=== PATIENT | male | born 1970 | race Caucasian/White ===

== ENCOUNTER 2020-02-22 09:50 | Emergency (ER) | payer BC, OTHER ==
[2020-02-22 11:17] LABS: Absolute Lymphocytes (CBC) 1.4 K/uL (0.7-4.9); Basophils % 0.7 % (0-1.3); Hematocrit 32.7 % (39.6-49.0); Lymphocytes % 15.2 % (15.3-44.8); MPV 9.8 fL (7.6-11.3); RBC Red Blood Cell Count 3.09 M/uL (4.33-5.43)
[2020-02-22] MEDS ORDERED: ONDANSETRON 4 MG/2 ML VIAL ONE (11:21)
[2020-02-22] MEDS ORDERED: NA CHLORIDE 0.9% 1,000 ML ONE (11:21)
[2020-02-22] MEDS ORDERED: DIAZEPAM 10 MG/2 ML INJ SYRINGE ONE (11:21)
[2020-02-22] MEDS ORDERED: FAMOTIDINE 20 MG/2 ML VIAL IV ONE (11:21)
[2020-02-22 11:23] LABS: Protime INR 1.19
[2020-02-22] MEDS ORDERED: FOLIC ACID 1 MG, THIAMINE HCL 100 MG, MULTIVITAMINS INJ 10 ML in NA CHLORIDE 0.9% 1,000 ML IV ONE (11:30)
[2020-02-22 11:36] LABS: ALT/SGPT 76 U/L (12-78); AST/SGOT 140 U/L (15-37); Albumin 3.8 g/dL (3.4-5.0); Alkaline Phosphatase 115 U/L (45-117); BUN Blood Urea Nitrogen 20 mg/dL (7-18); Bicarbonate 29 mmol/L (21-32); Bilirubin Total 1.9 mg/dL (0.2-1.0); Glucose Level 141 mg/dL (74-106); Potassium 3.2 mmol/L (3.5-5.1); Protein, Total 8.2 g/dL (6.4-8.2); Sodium Level 135 mmol/L (136-145)
--- NOTE | 2020-02-22 11:46 | RAD REPORT ---
EXAM DESCRIPTION: CT - Head Brain Wo Cont - 02/22/2020 11:31 am CLINICAL HISTORY: SEIZURE Headache, drowsiness, seizure COMPARISON: HEAD BRAIN W O CONTRAST dated 11/28/2012 TECHNIQUE: All CT scans are performed using dose optimization technique as appropriate and may inclu de automated exposure control or mA/KV adjustment according to patient size. FINDINGS: No intracranial hemorrhage, hydrocephalus or extra-axial fluid collection.No areas of brai n edema or evidence of midline shift. Moderate polypoid mucosal thickening involving the right maxillary antrum. The paranasal sinuses and mastoids are otherwise clear. The calvarium is intact. IMPRESSION: No acute intracranial abnormality.
--- NOTE | 2020-02-22 12:35 | EDPHYS ---
Physician Documentation [facility] Name: Enoch Nicole Age: 49 yrs Sex: Male : 1970 Arrival Date: 02/22/2020 Time: 09:51 Bed 8 Private MD: ED Physician Tarik Santos HPI: 02/21 11:19 This 49 yrs old Male presents to ER via Ambulatory with complaints of kdr Probable Seizure, Alcohol Withdrawal. 11:19 The patient presents with a history of multiple seizures, a total of 2. Character of kdr seizure(s): Loss of consciousness: the patient experienced loss of consciousness, Motor activity: generalized, Incontinence: none, Apnea: the patient did not experience apnea, Circulation: the patient did not experience evidence of pulse disturbance. Seizure onset: last few days. Context: the seizure(s) was witnessed, by a bystander. Seizure Hx: the patient has no previous seizure history. Associated injury: The patient did not suffer any apparent associated injury, Back: Other:. The patient has not experienced similar symptoms in the past. The patient has not recently seen a physician. The patient stopped drinking a 5th of alcohol last Saturday and on Saturday, he started to vomit and shake. he has been feeling poorly since and today continues with the tremors and nausea but no vomiting since Saturday and has been able to keep fluids down.. Historical: - Allergies: 10:06 No Known Allergies; hb - Home Meds: 10:06 levothyroxine 50 mcg oral tab once daily [Active]; Wellbutrin XL 300 mg Oral Tb24 1 tab hb once daily [Active]; metformin 750 mg Oral Tb24 1 tab once daily [Active]; - PMHx: 10:06 Hyperlipidemia; Diabetes - NIDDM; hb - PSHx: 10:06 Hernia repair; hb - Immunization history:: Adult Immunizations up to date. - Social history:: Smoking status: Patient denies any tobacco usage or history of. Patient uses alcohol, on a daily basis. ROS: 11:19 Constitutional: Negative for fever, chills, and weight loss, Eyes: Negative for injury, kdr pain, redness, and discharge, Neck: Negative for injury, pain, and swelling, Cardiovascular: Negative for chest pain, palpitations, and edema, Respiratory: Negative for shortness of breath, cough, wheezing, and pleuritic chest pain, Back: Negative for injury and pain, : Negative for injury, bleeding, discharge, and swelling, MS/Extremity: Negative for injury and deformity, Skin: Negative for injury, rash, and discoloration, Psych: Negative for depression, anxiety, suicide ideation, homicidal ideation, and hallucinations, Allergy/Immunology: Negative for hives, rash, and allergies, Endocrine: Negative for neck swelling, polydipsia, polyuria, polyphagia, and marked weight changes, Hematologic/Lymphatic: Negative for swollen nodes, abnormal bleeding, and unusual bruising. 11:19 Abdomen/GI: Positive for nausea, vomiting, and diarrhea, Negative for constipation, abdominal distension, anorexia, dysphagia, hematemesis, black/tarry stool, rectal pain, rectal bleeding, bowel incontinence. Exam: 11:19 Constitutional: This is a well developed, well nourished patient who is awake, alert, kdr and in no acute distress. Head/Face: Normocephalic, atraumatic. Eyes: Pupils equal round and reactive to light, extra-ocular motions intact. Lids and lashes normal. Conjunctiva and sclera are non-icteric and not injected. Cornea within normal limits. Periorbital areas with no swelling, redness, or edema. Neck: Trachea midline, no thyromegaly or masses palpated, and no cervical lymphadenopathy. Supple, full range of motion without nuchal rigidity, or vertebral point tenderness. No Meningismus. Chest/axilla: Normal chest wall appearance and motion. Nontender with no deformity. No lesions are appreciated. Cardiovascular: Regular rate and rhythm with a normal S1 and S2. No gallops, murmurs, or rubs. Normal PMI, no JVD. No pulse deficits. Respiratory: Lungs have equal breath sounds bilaterally, clear to auscultation and percussion. No rales, rhonchi or wheezes noted. No increased work of breathing, no retractions or nasal flaring. Abdomen/GI: Soft, non-tender, with normal bowel sounds. No distension or tympany. No guarding or rebound. No evidence of tenderness throughout. Back: No spinal tenderness. No costovertebral tenderness. Full range of motion. Skin: Warm, dry with normal turgor. Normal color with no rashes, no lesions, and no evidence of cellulitis. MS/ Extremity: Pulses equal, no cyanosis. Neurovascular intact. Full, normal range of motion. Psych: Awake, alert, with orientation to person, place and time. Behavior, mood, and affect are within normal limits. 11:19 Neuro: Orientation: is normal, Mentation: is normal, Memory: is normal, appropriate for stated age, Cerebellar function: is grossly normal based on the patient's age, Motor: is normal, Sensation: is normal, seizure activity, is not displayed by the patient, Abnormal movements: resting tremor, is located in the right arm, left arm, right leg and left leg. 11:47 ECG was reviewed by the Attending Physician. kdr Vital Signs: 10:02 BP 147 / 104; Pulse 103; Resp 16; Temp 97.9; Pulse Ox 100% on R/A; Weight 74.84 kg; hb Height 5 ft. 11 in. (180.34 cm); Pain 3/10; 11:35 BP 124 / 87; Pulse 101; Resp 18; Pulse Ox 99% on R/A; ph 12:35 BP 126 / 78; Pulse 86; Resp 18; Temp 97.6; Pulse Ox 98% on R/A; ph 10:02 Body Mass Index 23.01 (74.84 kg, 180.34 cm) hb MDM: 12:34 Patient medically screened. kdr 13:11 Data reviewed: vital signs, nurses notes, lab test result(s), EKG, radiologic studies. kdr Counseling: I had a detailed discussion with the patient and/or guardian regarding: the historical points, exam findings, and any diagnostic results supporting the discharge/admit diagnosis, lab results, radiology results, the need for outpatient follow up. ED course: The patient was stable in the ED and happy with the care provided and the plan for discharge and follow-up. 02/21 10:46 Order name: Acetaminophen; Complete Time: : kdr 02/21 10:46 Order name: Basic Metabolic Panel; Complete Time: kdr 02/21 10:46 Order name: CBC with Diff kdr 02/21 10:46 Order name: ETOH Level; Complete Time: kdr 02/21 10:46 Order name: Hepatic Function; Complete Time: : kdr 02/21 10:46 Order name: PT-INR; Complete Time: kdr 02/21 10:46 Order name: Ptt, Activated; Complete Time: 11:58 kdr 02/21 10:46 Order name: Salicylate kdr 02/21 11:19 Order name: CT Head Brain wo Cont; Complete Time: 11:58 kdr 02/21 11:20 Order name: CBC Smear Scan EDMS 02/21 10:46 Order name: EKG; Complete Time: 10:47 kdr 02/21 10:46 Order name: EKG - Nurse/Tech; Complete Time: 11:04 kdr 02/21 10:46 Order name: IV Saline Lock; Complete Time: 11:08 kdr 02/21 10:46 Order name: Labs collected and sent; Complete Time: 11:08 kdr EC:47 Rate is 99 beats/min. Rhythm is regular, Normal Sinus Rhythm with No ectopy. QRS [place] kdr is Normal. AL interval is normal. QRS interval is normal. QT interval is normal. Clinical impression: Normal ECG. Administered Medications: 11:05 Drug: NS 0.9% 1000 ml Route: IV; Rate: 1 bolus; Site: right forearm; ph 12:45 Follow up: Response: No adverse reaction; IV Status: Completed infusion; IV Intake: ph 1000ml 11:06 Drug: Zofran (Ondansetron) 4 mg Route: IVP; Site: right forearm; ph 11:48 Follow up: Response: No adverse reaction ph 11:08 Drug: Pepcid 20 mg Route: IVP; Site: right forearm; ph 11:48 Follow up: Response: No adverse reaction ph 11:10 Drug: Valium 5 mg Route: IVP; Site: right forearm; ph 11:48 Follow up: Response: No adverse reaction ph 11:47 Drug: Banana Bag - (NS 0.9% 1000 ml, foLIC Acid 1 mg, Thiamine 100 mg, Multivitamin 1 ph amp) Route: IV; Rate: calculated rate; Site: right forearm; 13:27 Follow up: Response: No adverse reaction; IV Status: Completed infusion; IV Intake: ph 1000ml Disposition: 02/22/20 12:34 Discharged to Home. Impression: Alcohol abuse, Alcohol dependence with withdrawal, unspecified. - Condition is Stable. - Discharge Instructions: Chemical Dependency, Delirium Tremens, Alcohol Use Disorder, Alcohol Abuse and Nutrition, Alcohol Withdrawal, [id number]. - Prescriptions for chlordiazepoxide HCl 25 mg Oral capsule - take 4 capsule by ORAL route every 6 hours As needed up to 300 mg/day; 20 capsule. - Medication Reconciliation Form, Thank You Letter form. - Follow up: Private Physician; When: 2 - 3 days; Reason: If symptoms return, Further diagnostic work-up, Recheck today's complaints, Continuance of care, Re-evaluation by your physician. - Problem is an acute exacerbation. - Symptoms have improved. Signatures: Dispatcher [employer] EDMS Tarik Santos MD MD [facility] Berna Dee RN RN Sanjuanita Corea RN RN Corrections: (The following items were deleted from the chart) 13:28 12:34 02/22/2020 12:34 Discharged to Home. Impression: Alcohol abuse; Alcohol ph dependence with withdrawal, unspecified. Condition is Stable. Forms are Medication Reconciliation Form, Thank You Letter, Antibiotic Education, Prescription Opioid Use. Follow up: Private Physician; When: 2 - 3 days; Reason: If symptoms return, Further diagnostic work-up, Recheck today's complaints, Continuance of care, Re-evaluation by your physician. Problem is an acute exacerbation. Symptoms have improved. kdr
--- NOTE | 2020-02-22 12:35 | ER ---
Nurse's Notes [facility] Name: Enoch Nicole Age: 49 yrs Sex: Male : 1970 Arrival Date: 02/22/2020 Time: 09:51 Bed 8 Private MD: Diagnosis: Alcohol abuse;Alcohol dependence with withdrawal, unspecified Presentation: 02/21 10:02 Chief complaint: "I drink a quart of vodka per day, my last drink was last Saturday, I hb think I have had a few seizures I bit my tongue and can't quit vomiting..". Coronavirus screen: At this time, the client does not indicate any symptoms associated with coronavirus-19. Ebola Screen: No symptoms or risks identified at this time. Initial Sepsis Screen: Does the patient meet any 2 criteria? HR > 90 bpm. No. Patient's initial sepsis screen is negative. Does the patient have a suspected source of infection? No. Patient's initial sepsis screen is negative. Risk Assessment: Do you want to hurt yourself or someone else? Patient reports no desire to harm self or others. Onset of symptoms was February 22, 2020. 10:02 Method Of Arrival: Ambulatory hb 10:02 Acuity: CHETNA 2 hb Historical: - Allergies: 10:06 No Known Allergies; hb - Home Meds: 10:06 levothyroxine 50 mcg oral tab once daily [Active]; Wellbutrin XL 300 mg Oral Tb24 1 tab hb once daily [Active]; metformin 750 mg Oral Tb24 1 tab once daily [Active]; - PMHx: 10:06 Hyperlipidemia; Diabetes - NIDDM; hb - PSHx: 10:06 Hernia repair; hb - Immunization history:: Adult Immunizations up to date. - Social history:: Smoking status: Patient denies any tobacco usage or history of. Patient uses alcohol, on a daily basis. Screenin:36 Abuse screen: Denies threats or abuse. Denies injuries from another. Nutritional ph screening: No deficits noted. Tuberculosis screening: No symptoms or risk factors identified. Fall Risk No fall in past 12 months (0 pts). Secondary diagnosis (15 points) ETOH withdrawl. IV access (20 points). Ambulatory Aid- None/Bed Rest/Nurse Assist (0 pts). Gait- Normal/Bed Rest/Wheelchair (0 pts) Mental Status- Oriented to own ability (0 pts). Assessment: 11:38 General: Appears in no apparent distress. comfortable, slender, well groomed, Behavior ph is calm, cooperative, appropriate for age. Pain: Denies pain. Neuro: Level of Consciousness is awake, alert, obeys commands, Oriented to person, place, time, situation, Seizure activity reported prior to arrival. pt report seizure activity " over the weekend". Cardiovascular: Denies chest pain, nausea, shortness of breath, Capillary refill < 3 seconds in bilateral fingers Patient's skin is warm and dry. Rhythm is sinus tachycardia. Respiratory: Airway is patent Respiratory effort is even, unlabored, Respiratory pattern is regular, symmetrical. GI: Abdomen is flat, non-distended, Patient currently denies abdominal pain, diarrhea, nausea, vomiting. : No signs and/or symptoms were reported regarding the genitourinary system. Derm: Skin is intact, is healthy with good turgor, Skin is pink, warm \\T\\ dry. Musculoskeletal: Circulation, motion, and sensation intact. Range of motion: limited in all extremities. 13:16 Reassessment: Patient appears in no apparent distress at this time. Patient and/or ph family updated on plan of care and expected duration. Pain level reassessed. Patient is alert, oriented x 3, equal unlabored respirations, skin warm/dry/pink. D/C pending completion of IV fluids/banana bag. Vital Signs: 10:02 BP 147 / 104; Pulse 103; Resp 16; Temp 97.9; Pulse Ox 100% on R/A; Weight 74.84 kg; hb Height 5 ft. 11 in. (180.34 cm); Pain 3/10; 11:35 BP 124 / 87; Pulse 101; Resp 18; Pulse Ox 99% on R/A; ph 12:35 BP 126 / 78; Pulse 86; Resp 18; Temp 97.6; Pulse Ox 98% on R/A; ph 10:02 Body Mass Index 23.01 (74.84 kg, 180.34 cm) hb Vitals: 11:35 Cardiac Rhythm Assessment Sinus tach. ph ED Course: 09:51 Patient arrived in ED. ds1 09:59 Tarik Santos MD is Attending Physician. kdr 10:05 Triage completed. hb 10:06 Arm band placed on. hb 10:22 Berna Dee, RN is Primary Nurse. ph 10:55 Initial lab(s) drawn, by oh, sent to lab. Inserted saline lock: 20 gauge in right ph forearm, using aseptic technique. Blood collected. 11:00 EKG done, by ED staff, reviewed by Tarik Santos MD. dh3 11:31 CT Head Brain wo Cont In Process Unspecified. EDMS 11:40 Bed in low position. Call light in reach. Side rails up X2. Seizure precautions ph initiated. title supervisor on. Pulse ox on. NIBP on. Door closed. Noise minimized. Warm blanket given. PO fluids given. 13:17 No provider procedures requiring assistance completed. Patient did not have IV access ph during this emergency room visit. Administered Medications: 11:05 Drug: NS 0.9% 1000 ml Route: IV; Rate: 1 bolus; Site: right forearm; ph 12:45 Follow up: Response: No adverse reaction; IV Status: Completed infusion; IV Intake: ph 1000ml 11:06 Drug: Zofran (Ondansetron) 4 mg Route: IVP; Site: right forearm; ph 11:48 Follow up: Response: No adverse reaction ph 11:08 Drug: Pepcid 20 mg Route: IVP; Site: right forearm; ph 11:48 Follow up: Response: No adverse reaction ph 11:10 Drug: Valium 5 mg Route: IVP; Site: right forearm; ph 11:48 Follow up: Response: No adverse reaction ph 11:47 Drug: Banana Bag - (NS 0.9% 1000 ml, foLIC Acid 1 mg, Thiamine 100 mg, Multivitamin 1 ph amp) Route: IV; Rate: calculated rate; Site: right forearm; 13:27 Follow up: Response: No adverse reaction; IV Status: Completed infusion; IV Intake: ph 1000ml Intake: 12:45 IV: 1000ml; Total: 1000ml. ph 13:27 IV: 1000ml; Total: 2000ml. ph Outcome: 12:34 Discharge ordered by . kdr 13:28 Patient left the ED. ph 13:28 Discharged to home ambulatory. ph 13:28 Condition: improved 13:28 Discharge instructions given to patient, Instructed on discharge instructions, follow up and referral plans. medication usage, Demonstrated understanding of instructions, follow-up care, medications, Prescriptions given X 1. Signatures: Dispatcher [employer] EDIL Tarik Santos MD MD [facility] Aparna Olsen ds1 Berna Dee RN RN ph Sanjuanita Corea RN RN Brittny Suarez 3
[2020-02-22 12:58] LABS: Platelet Estimate DECR; Urine White Blood Cell Casts OK
[2020-02-22 13:01] LABS: Blood Morphology Comment NOTED (NOT SEEN); Macrocytosis 1+; Platelets, Giant FEW
--- NOTE | 2020-02-23 10:46 | EKG ---
Test Date: 2020-02-22 Test Time: 10:56:33 Electrical Engineer: LEANN MEASUREMENT RESULTS: Intervals: Rate: 99 IA: 154 QRSD: 90 QT: 374 QTc: 479 [place]: P: 61 IA: 154 QRS: 54 T: 48 INTERPRETIVE STATEMENTS: Normal sinus rhythm Normal ECG Compared to ECG 11/28/2012 12:07:38 No significant changes Electronically Signed On 02-23-20 10:43:47 CDT by Adan Bishop
== END 2020-02-22 13:28 | disposition home or self-care (01) ==
LOC: ER 09:50
DX: F10.239 Alcohol dependence with withdrawal, unspecified (principal); E11.9 Type 2 diabetes mellitus without complications; E78.5 Hyperlipidemia, unspecified
CPT/HCPCS: 93005; 85025; 80048; 36415; 80320; 80329 ×2; 85610; 80076; 85730; 70450; J3411; J3360; J7030 ×2; J2405; 96361; 96365; 96366; 96375; 99284

== ENCOUNTER 2020-07-18 09:38 | Inpatient (IN) | payer OTHER ==
[2020-07-18 10:47] LABS: Absolute Lymphocytes (CBC) 1.3 K/uL (0.7-4.9); Basophils % 0.6 % (0-1.3); Hematocrit 31.1 % (39.6-49.0); Lymphocytes % 18.9 % (15.3-44.8); MPV 8.3 fL (7.6-11.3); RBC Red Blood Cell Count 3.05 M/uL (4.33-5.43)
[2020-07-18 10:53] LABS: Protime INR 1.2
[2020-07-18] MEDS ORDERED: FAMOTIDINE 20 MG/2 ML VIAL IV ONE (10:56)
[2020-07-18] MEDS ORDERED: LORazepam 2 MG/ML VIAL ONE ×5 (10:56→22:04)
[2020-07-18] MEDS ORDERED: NA CHLORIDE 0.9% 100 ML ONE (10:56)
[2020-07-18] MEDS ORDERED: FOLIC ACID 5 MG/ML VIAL ONE (10:57)
[2020-07-18] MEDS ORDERED: THIAMINE HCL 100 MG, FOLIC ACID 1 MG, MULTIVITAMINS INJ 10 ML in NA CHLORIDE 0.9% 1,000 ML IV ONE (11:00)
--- NOTE | 2020-07-18 11:18 | EDPHYS ---
Physician Documentation [facility] Name: Enoch Nicole Age: 50 yrs Sex: Male : 1970 Arrival Date: 07/18/2020 Time: 09:41 Bed 16 Private MD: ED Physician Mike Younger HPI: 07/18 10:21 This 50 yrs old Male presents to ER via EMS with complaints of leg cramping. kathryn 10:21 Details of fall: The patient fell from an upright position, while walking. Onset: The kathryn symptoms/episode began/occurred 5 day(s) ago. Associated injuries: The patient sustained injury to the head, injury to the chest. The patient presents with confusion, decreased mental status. Onset: The symptoms/episode began/occurred 1 week(s) ago. Possible causes: alcohol, has apparently stopped drinking. The patient presents with a history of multiple seizures, a total of 6. Seizure onset: this morning. Historical: - Allergies: 09:53 No Known Allergies; ss - PMHx: 09:53 Hyperlipidemia; Diabetes - NIDDM; Hypothyroidism; Alcoholism; ss - PSHx: 09:53 Hernia repair; ss - Immunization history:: Adult Immunizations up to date. - Social history:: Smoking status: Patient reports use of chewing tobacco. Patient denies any tobacco usage or history of. - Family history:: not pertinent. ROS: 10:21 Constitutional: Negative for fever, chills, and weight loss, Eyes: Negative for injury, kathryn pain, redness, and discharge, ENT: Negative for injury, pain, and discharge, Neck: Negative for injury, pain, and swelling, Cardiovascular: Negative for chest pain, palpitations, and edema, Respiratory: Negative for shortness of breath, cough, wheezing, and pleuritic chest pain, Abdomen/GI: Negative for abdominal pain, nausea, vomiting, diarrhea, and constipation, Back: Negative for injury and pain, : Negative for injury, bleeding, discharge, and swelling, MS/Extremity: Negative for injury and deformity, Skin: Negative for injury, rash, and discoloration, Psych: Negative for depression, anxiety, suicide ideation, homicidal ideation, and hallucinations, Allergy/Immunology: Negative for hives, rash, and allergies, Endocrine: Negative for neck swelling, polydipsia, polyuria, polyphagia, and marked weight changes, Hematologic/Lymphatic: Negative for swollen nodes, abnormal bleeding, and unusual bruising. 10:21 Neuro: Positive for seizure activity, weakness. Exam: 10:21 Constitutional: This is a well developed, well nourished patient who is awake, alert, kathryn and in no acute distress. Head/Face: Normocephalic, atraumatic. Eyes: Pupils equal round and reactive to light, extra-ocular motions intact. Lids and lashes normal. Conjunctiva and sclera are non-icteric and not injected. Cornea within normal limits. Periorbital areas with no swelling, redness, or edema. ENT: Nares patent. No nasal discharge, no septal abnormalities noted. Tympanic membranes are normal and external auditory canals are clear. Oropharynx with no redness, swelling, or masses, exudates, or evidence of obstruction, uvula midline. Mucous membranes moist. Neck: Trachea midline, no thyromegaly or masses palpated, and no cervical lymphadenopathy. Supple, full range of motion without nuchal rigidity, or vertebral point tenderness. No Meningismus. Chest/axilla: Normal chest wall appearance and motion. Nontender with no deformity. No lesions are appreciated. Cardiovascular: Regular rate and rhythm with a normal S1 and S2. No gallops, murmurs, or rubs. Normal PMI, no JVD. No pulse deficits. Respiratory: Lungs have equal breath sounds bilaterally, clear to auscultation and percussion. No rales, rhonchi or wheezes noted. No increased work of breathing, no retractions or nasal flaring. Abdomen/GI: Soft, non-tender, with normal bowel sounds. No distension or tympany. No guarding or rebound. No evidence of tenderness throughout. Back: No spinal tenderness. No costovertebral tenderness. Full range of motion. Skin: Warm, dry with normal turgor. Normal color with no rashes, no lesions, and no evidence of cellulitis. MS/ Extremity: Pulses equal, no cyanosis. Neurovascular intact. Full, normal range of motion. Neuro: Awake and alert, GCS 15, oriented to person, place, time, and situation. Cranial nerves II-XII grossly intact. Motor strength 5/5 in all extremities. Sensory grossly intact. Cerebellar exam normal. Normal gait. Psych: Awake, alert, with orientation to person, place and time. Behavior, mood, and affect are within normal limits. 10:21 Chest/axilla: Inspection: normal, no acute changes, Palpation: tenderness, that is mild, of the left clavicle and anterior aspect of left upper chest. 10:21 Respiratory: the patient does not display signs of respiratory distress, Respirations: normal, Breath sounds: are clear throughout, no acute changes. 11:13 ECG was reviewed by the Attending Physician. [facility] Vital Signs: 09:43 BP 144 / 92; Pulse 100; Resp 19; Temp 98.5(O); Pulse Ox 100% on R/A; Weight 77.11 kg; ss Height 5 ft. 11 in. (180.34 cm); Pain 0/10; 11:22 BP 119 / 78; Pulse 79; Resp 17 S; Pulse Ox 99% on R/A; jd3 12:48 BP 143 / 93; Pulse 82; Resp 17 S; Pulse Ox 98% on R/A; jd3 14:19 BP 131 / 77; Pulse 87; Resp 18 S; Pulse Ox 97% on R/A; jd3 09:43 Body Mass Index 23.71 (77.11 kg, 180.34 cm) ss MDM: 09:42 Patient medically screened. kathryn 09:43 Patient medically screened. kathryn 10:24 Differential diagnosis: closed head injury, contusion, multiple trauma, sprain, strain, kathryn hypoglycemia, intracranial bleed, pneumonia. Data reviewed: vital signs, nurses notes, lab test result(s), EKG, radiologic studies, CT scan, plain films. Data interpreted: bus monitor: rate is 100 beats/min, rhythm is regular, Pulse oximetry: on room air is 100 %. Test interpretation: by ED physician or midlevel provider: ECG, plain radiologic studies. Counseling: I had a detailed discussion with the patient and/or guardian regarding: the historical points, exam findings, and any diagnostic results supporting the discharge/admit diagnosis, lab results, radiology results, the need for outpatient follow up. 07/18 10:20 Order name: Basic Metabolic Panel; Complete Time: 11:47 [facility] 07/18 10:20 Order name: CBC with Diff [facility] 07/18 10:20 Order name: LFT's; Complete Time: 11:47 [facility] 07/18 10:20 Order name: Magnesium; Complete Time: 11:47 [facility] 07/18 10:20 Order name: NT PRO-BNP; Complete Time: 11:47 [facility] 07/18 10:20 Order name: PT-INR; Complete Time: 11:06 [facility] 07/18 10:20 Order name: Troponin (emerg Dept Use Only); Complete Time: 11:47 [facility] 07/18 10:20 Order name: Lipase; Complete Time: 11:47 [facility] 07/18 10:20 Order name: Acetaminophen; Complete Time: 11:47 [facility] 07/18 10:20 Order name: ETOH Level; Complete Time: 11:47 [facility] 07/18 10:20 Order name: Ptt, Activated; Complete Time: 11:06 [facility] 07/18 10:20 Order name: Salicylate; Complete Time: 11:47 [facility] 07/18 10:20 Order name: Urine Drug Screen [facility] 07/18 11:19 Order name: COVID-19 07/18 11:20 Order name: CORONAVIRUS [facility] 07/18 11:47 Order name: Phosphorus [facility] 07/18 11:50 Order name: Blood Culture Adult (2) [facility] 07/18 11:50 Order name: Lactate [facility] 07/18 12:16 Order name: Urine Dipstick--Ancillary (enter results) 07/18 12:17 Order name: Manual Differential [facility] 07/18 13:52 Order name: SARS-COV-2 RT PCR [facility] 07/18 14:07 Order name: CREATININE WHOLE BLOOD [facility] 07/18 16:47 Order name: Glucose, Ancillary Testing [facility] 07/18 19:40 Order name: Glucose, Ancillary Testing [facility] 07/18 21:34 Order name: Basic Metabolic Panel [facility] 07/18 21:34 Order name: Magnesium [facility] 07/19 05:41 Order name: CBC with Automated Diff [facility] 07/19 05:53 Order name: Comprehensive Metabolic Panel [facility] 07/19 05:53 Order name: Magnesium [facility] 07/19 07:03 Order name: T4 Free [facility] 07/18 10:20 Order name: XRAY Chest (1 view) [facility] 07/18 10:20 Order name: EKG; Complete Time: 10:21 [facility] 07/18 10:20 Order name: Cardiac monitoring; Complete Time: 10:31 [facility] 07/18 10:20 Order name: EKG - Nurse/Tech; Complete Time: 11:20 [facility] 07/18 10:20 Order name: IV Saline Lock; Complete Time: 10:40 [facility] 07/18 10:20 Order name: Labs collected and sent; Complete Time: 10:40 [facility] 07/18 10:20 Order name: O2 Per Protocol; Complete Time: 10: [facility] 07/18 10:20 Order name: O2 Sat Monitoring; Complete Time: 10: [facility] 07/18 10:20 Order name: Urine Dipstick-Ancillary (obtain specimen); Complete Time: 12:15 [facility] 07/18 10:20 Order name: CT Traumagram (Head C Spine CAP W Con); Complete Time: 11:47 [facility] 07/18 10:20 Order name: Seizure Precautions; Complete Time: 10:31 [facility] 07/19 07:03 Order name: Thyroid Stimulating Hormone [facility] 07/19 07:48 Order name: Glucose, Ancillary Testing [facility] 07/19 08:05 Order name: CBC Smear Scan [facility] 07/19 08:10 Order name: RAD [facility] 07/19 11:53 Order name: Glucose, Ancillary Testing [facility] 07/19 13:28 Order name: MRI [facility] 07/19 15:42 Order name: Potassium [facility] 07/19 16:30 Order name: Glucose, Ancillary Testing [facility] 07/19 19:54 Order name: Glucose, Ancillary Testing [facility] EC:13 Rate is 77 beats/min. Rhythm is regular. QRS [place] is Normal. MI interval is normal. QRS kathryn interval is normal. QT interval is prolonged at 448 msec. No Q waves. T waves are Normal. No ST changes noted. Clinical impression: NSR w/ Non-specific ST/T Changes and No evidence of ischemia. Interpreted by me. Reviewed by me. Administered Medications: 10:48 Not Given (med on back order per pharmacy): Thiamine 100 mg IV at bolus once jd3 11:18 Drug: Pepcid 20 mg Route: IVP; Site: left forearm; jd3 12:15 Follow up: Response: No adverse reaction jd3 11:19 Drug: foLIC Acid 1 mg Route: IVPB; Site: left forearm; jd3 12:15 Follow up: Response: No adverse reaction; IV Status: Completed infusion jd3 11:19 Drug: Banana Bag - (NS 0.9% 1000 ml, foLIC Acid 1 mg, Thiamine 100 mg, Multivitamin 1 jd3 amp) Route: IV; Rate: 125 ml/hr; Site: left forearm; 14:22 Follow up: Response: No adverse reaction; IV Status: Infusion continued upon admission jd3 11:19 Drug: Ativan 2 mg Route: IVP; Site: left forearm; jd3 12:15 Follow up: Response: No adverse reaction jd3 12:45 Drug: Magnesium Sulfate 2 grams Route: IVPB; Infused Over: 2 hrs; Site: left forearm; jd3 14:20 Follow up: Response: No adverse reaction; IV Status: Completed infusion jd3 12:45 Drug: Potassium Effervescent Tablet 50 mEq Route: PO; jd3 13:45 Follow up: Response: No adverse reaction jd3 13:40 Drug: Potassium Chloride 20 mEq Route: IV; Rate: per protocol; Site: left forearm; jd3 14:20 Follow up: Response: No adverse reaction; IV Status: Infusion continued upon admission jd3 15:45 Drug: Cefepime 2 grams Route: IVPB; Rate: 200 ml/hr; Infused Over: 30 mins; Site: left jd3 forearm; 15:45 Follow up: Response: No adverse reaction; IV Status: Infusion continued upon admission jd3 Disposition: 07/18/20 11:17 Hospitalization ordered by Jimi Hardy for Inpatient Admission. Preliminary diagnosis are Alcohol abuse, Alcohol dependence with withdrawal, Repeated falls, Epileptic seizures related to external causes, Type 2 diabetes mellitus, Hypokalemia, Hypomagnesemia. - Bed requested for Intensive Care Unit. - Status is Inpatient Admission. sg - Condition is Fair. - Problem is new. - Symptoms have improved. Signatures: Dispatcher [employer] Sara Magallanes RN RN Enoch Sadnoval RN RN sg Anderson, Corey, MD MD cha Williams, Irene, RN RN Lenora Stratton RN RN Ernesto Jones RN RN jd3 Corrections: (The following items were deleted from the chart) 11:50 11:17 Hospitalization Ordered by Jimi Hardy DO for Inpatient Admission. Preliminary kathryn diagnosis is Alcohol abuse; Alcohol dependence with withdrawal; Repeated falls; Epileptic seizures related to external causes; Type 2 diabetes mellitus. Bed requested for Intensive Care Unit. Status is Inpatient Admission. Condition is Fair. Problem is new. Symptoms have improved. kathryn 14:17 11:50 07/18/2020 11:17 Hospitalization Ordered by Jimi Hardy DO for Inpatient Admission. Preliminary diagnosis is Alcohol abuse; Alcohol dependence with withdrawal; Repeated falls; Epileptic seizures related to external causes; Type 2 diabetes mellitus; Hypokalemia; Hypomagnesemia. Bed requested for Intensive Care Unit. Status is Inpatient Admission. Condition is Fair. Problem is new. Symptoms have improved. kathryn 07/19 19:06 07/18 14:17 07/18/2020 11:17 Hospitalization Ordered by Jimi Hardy DO for Inpatient dw Admission. Preliminary diagnosis is Alcohol abuse; Alcohol dependence with withdrawal; Repeated falls; Epileptic seizures related to external causes; Type 2 diabetes mellitus; Hypokalemia; Hypomagnesemia. Bed requested for [facility] ER HOLD. Status is Inpatient Admission. Condition is Fair. Problem is new. Symptoms have improved. 07/19 20:09 19:06 07/18/2020 11:17 Hospitalization Ordered by Jimi Hardy DO for Inpatient sg Admission. Preliminary diagnosis is Alcohol abuse; Alcohol dependence with withdrawal; Repeated falls; Epileptic seizures related to external causes; Type 2 diabetes mellitus; Hypokalemia; Hypomagnesemia. Bed requested for Intensive Care Unit. Status is Inpatient Admission. Condition is Fair. Problem is new. Symptoms have improved. dw
--- NOTE | 2020-07-18 11:18 | ER ---
Nurse's Notes [facility] Name: Enoch Nicole Age: 50 yrs Sex: Male : 1970 Arrival Date: 07/18/2020 Time: 09:41 Bed 16 Private MD: Diagnosis: Alcohol abuse;Alcohol dependence with withdrawal;Repeated falls;Epileptic seizures related to external causes;Type 2 diabetes mellitus;Hypokalemia;Hypomagnesemia Presentation: 07/18 09:43 Chief complaint: Patient states: Quit drinking alcohol 8 days ago. Pt reports that he ss usually deals with his withdrawals at home fairly well at home, but states since the first day he quit, when he stands up his legs cramp up, but when he lays down his legs are fine. Coronavirus screen: Client denies travel out of the [place] in the last 14 days. Ebola Screen: Patient denies exposure to infectious person. Patient denies travel to an Ebola-affected area in the 21 days before illness onset. Initial Sepsis Screen: Does the patient meet any 2 criteria? No. Patient's initial sepsis screen is negative. Does the patient have a suspected source of infection? No. Patient's initial sepsis screen is negative. Risk Assessment: Do you want to hurt yourself or someone else? Patient reports no desire to harm self or others. Onset of symptoms was July 10, 2019. 09:43 Method Of Arrival: EMS: [facility] 09:43 Acuity: CHETNA 3 ss Historical: - Allergies: 09:53 No Known Allergies; ss - PMHx: 09:53 Hyperlipidemia; Diabetes - NIDDM; Hypothyroidism; Alcoholism; ss - PSHx: 09:53 Hernia repair; ss - Immunization history:: Adult Immunizations up to date. - Social history:: Smoking status: Patient reports use of chewing tobacco. Patient denies any tobacco usage or history of. - Family history:: not pertinent. Screenin:21 Abuse screen: Denies threats or abuse. Nutritional screening: No deficits noted. jd3 Tuberculosis screening: No symptoms or risk factors identified. Fall Risk Ambulatory Aid- None/Bed Rest/Nurse Assist (0 pts). Gait- Normal/Bed Rest/Wheelchair (0 pts) Mental Status- Oriented to own ability (0 pts). Total Vizcaino Fall Scale indicates No Risk (0-24 pts). Assessment: 11:20 General: Appears in no apparent distress. uncomfortable, Behavior is calm, cooperative, jd3 appropriate for age, anxious, restless. Pain: Complains of pain in right arm, left arm, right leg and left leg Quality of pain is described as crampy. Neuro: Level of Consciousness is awake, alert, obeys commands, confused, Oriented to person. Cardiovascular: Capillary refill < 3 seconds Patient's skin is warm and dry. Rhythm is regular. Respiratory: Airway is patent Respiratory effort is even, unlabored, Respiratory pattern is regular. GI: No signs and/or symptoms were reported involving the gastrointestinal system. : No signs and/or symptoms were reported regarding the genitourinary system. EENT: No signs and/or symptoms were reported regarding the EENT system. Derm: Skin is intact, Skin is dry, Skin is normal, Skin temperature is warm. Musculoskeletal: Circulation, motion, and sensation intact. Range of motion: intact in all extremities, pt with trimmers. 12:47 Reassessment: Patient appears in no apparent distress at this time. No changes from jd3 previously documented assessment. Patient and/or family updated on plan of care and expected duration. Pain level reassessed. 13:30 Reassessment: Patient appears in no apparent distress at this time. Patient and/or [facility] family updated on plan of care and expected duration. Pain level reassessed. pt still confused, A\T\O X 1. even and unlabored respirations. pt attempting to get out of bed, pt encouraged back into bed. denies pain at this time. 14:19 Reassessment: Patient appears in no apparent distress at this time. No changes from jd3 previously documented assessment. Patient and/or family updated on plan of care and expected duration. Pain level reassessed. tech at bedside encouraging pt to stay in bed. 14:23 Reassessment: charting continued in [facility]. [facility] Vital Signs: 09:43 BP 144 / 92; Pulse 100; Resp 19; Temp 98.5(O); Pulse Ox 100% on R/A; Weight 77.11 kg; ss Height 5 ft. 11 in. (180.34 cm); Pain 0/10; 11:22 BP 119 / 78; Pulse 79; Resp 17 S; Pulse Ox 99% on R/A; jd3 12:48 BP 143 / 93; Pulse 82; Resp 17 S; Pulse Ox 98% on R/A; jd3 14:19 BP 131 / 77; Pulse 87; Resp 18 S; Pulse Ox 97% on R/A; jd3 09:43 Body Mass Index 23.71 (77.11 kg, 180.34 cm) ED Course: 09:41 Patient arrived in ED. ss 09:42 Mike Younger MD is Attending Physician. kathryn 09:43 Ernesto Jones RN is Primary Nurse. jd3 09:52 Triage completed. ss 09:53 Arm band placed on right wrist. ss 10:40 Initial lab(s) drawn, by me, sent to lab. Inserted saline lock: 20 gauge in left em1 forearm, using aseptic technique. Blood collected. 10:54 CT Traumagram (Head C Spine CAP W Con) In Process Unspecified. EDMS 11:04 XRAY Chest (1 view) In Process Unspecified. EDMS 11:16 Jimi Hardy DO is Hospitalizing Provider. kathryn 11:22 Patient has correct armband on for positive identification. Bed in low position. Call jd3 light in reach. Side rails up X 1. pvc monitor on. Pulse ox on. NIBP on. 14:22 No provider procedures requiring assistance completed. Patient admitted, IV remains in jd3 place. Administered Medications: 10:48 Not Given (med on back order per pharmacy): Thiamine 100 mg IV at bolus once jd3 11:18 Drug: Pepcid 20 mg Route: IVP; Site: left forearm; jd3 12:15 Follow up: Response: No adverse reaction jd3 11:19 Drug: foLIC Acid 1 mg Route: IVPB; Site: left forearm; jd3 12:15 Follow up: Response: No adverse reaction; IV Status: Completed infusion jd3 11:19 Drug: Banana Bag - (NS 0.9% 1000 ml, foLIC Acid 1 mg, Thiamine 100 mg, Multivitamin 1 jd3 amp) Route: IV; Rate: 125 ml/hr; Site: left forearm; 14:22 Follow up: Response: No adverse reaction; IV Status: Infusion continued upon admission jd3 11:19 Drug: Ativan 2 mg Route: IVP; Site: left forearm; jd3 12:15 Follow up: Response: No adverse reaction jd3 12:45 Drug: Magnesium Sulfate 2 grams Route: IVPB; Infused Over: 2 hrs; Site: left forearm; jd3 14:20 Follow up: Response: No adverse reaction; IV Status: Completed infusion jd3 12:45 Drug: Potassium Effervescent Tablet 50 mEq Route: PO; jd3 13:45 Follow up: Response: No adverse reaction jd3 13:40 Drug: Potassium Chloride 20 mEq Route: IV; Rate: per protocol; Site: left forearm; jd3 14:20 Follow up: Response: No adverse reaction; IV Status: Infusion continued upon admission jd3 15:45 Drug: Cefepime 2 grams Route: IVPB; Rate: 200 ml/hr; Infused Over: 30 mins; Site: left jd3 forearm; 15:45 Follow up: Response: No adverse reaction; IV Status: Infusion continued upon admission jd3 Outcome: 11:17 Decision to Hospitalize by Provider. kathryn 14:22 Admitted to ER Hold. Please see [facility] for further documentation. jd3 14:22 Condition: stable 14:22 Instructed on the need for admit. 07/19 20:09 Patient left the ED. sg Signatures: Dispatcher [employer] EDEnoch De La Cruz RN RN Mike Hendrix MD MD cha Martinez, Hans em1 Lenora Stratton RN RN ss Davies, Jonathon, RN RN jd3 Corrections: (The following items were deleted from the chart) 07/18 12:48 11:20 Neuro: Level of Consciousness is awake, alert, obeys commands, Oriented to jd3 person, place, time, situation, jd3
--- NOTE | 2020-07-18 11:19 | RAD REPORT ---
EXAM DESCRIPTION: CT - Head C Spine Cap W Renny - 07/18/2020 10:53 am CLINICAL HISTORY: PAINfall, left-sided head, neck, chest and abdomen pain COMPARISON: No comparisons TECHNIQUE: Axial [address] head images were obtained. Axial [address] cervical spine images were obtaine d with sagittal and coronal reconstruction images reviewed. During dynamic enhancement of 100mL non-i onic contrast, axial 5 mm images of the chest, abdomen and pelvis were obtained. Biphasic technique p erformed of the abdomen and pelvis. All CT scans are performed using dose optimization technique as appropriate and may include automated exposure control or mA/KV adjustment according to patient size. FINDINGS: No intracranial hemorrhage, mass or edema. No midline shift or abnormal fluid collection. Volume loss changes are present greater than typically seen. Ventricles are in proportion to the volu me loss. Mastoid air cells are clear. Near complete opacification of a partially imaged right maxilla ry sinus noted. No skull fracture. CT cervical spine imaging shows normal height. Facet joint degenerative changes are present. Normal a lignment of the vertebrae. No disc space narrowing. No paraspinal mass or hematoma seen. Central bebeto l detail is inherently limited. Concerns for traumatic disc herniation or traumatic cord injury can b e further addressed with MR imaging. In the posterior right upper lobe there is a 2.5 centimeter area of ill-defined airspace opacificatio n. In the trauma setting this is most likely pulmonary contusion. Infiltrate is a lesser consideratio n. This does not have a suspicious malignant mass density. Minimal less than 5 millimeter reticulonod ular opacities are present in the midportion of the left lower lobe. This could be minimal infiltrate . Traumatic etiology is not suspected. No pneumothorax or pleural effusion. No mediastinal hematoma a nd the aorta and pulmonary arteries are unremarkable. No chest will mass or abnormal axillary finding . Nondisplaced lateral ninth left rib fracture is present. CT abdomen and pelvis show no injury to solid abdominal viscera. Diffuse fatty infiltration of the li sean is present. No gallbladder or biliary tree abnormality. No bowel injury or significant finding. N o free air, free fluid or abnormal stranding. No urinary bladder abnormality. No lumbar or pelvic acute finding. No significant vascular finding. IMPRESSION: No acute CT Head finding. Volume loss changes are present greater than typically seen fo r age. No significant CT Cervical Spine finding. Nondisplaced lateral left ninth rib fracture without pneumothorax or pleural fluid. There is a 2.5 ce ntimeter area in the right upper lobe suspected to be pulmonary contusion. Small reticulonodular opacities in the left lower lobe are nonspecific but could be minimal infiltrat e. No acute traumatic injury to the abdomen or pelvis.
[2020-07-18 11:35] LABS: ALT/SGPT 32 U/L (12-78); AST/SGOT 83 U/L (15-37); BUN Blood Urea Nitrogen 9 mg/dL (7-18); Bicarbonate 26 mmol/L (21-32); Bilirubin Total 1.2 mg/dL (0.2-1.0); Lipase 364 U/L (73-393); Protein, Total 7.7 g/dL (6.4-8.2); Sodium Level 135 mmol/L (136-145)
[2020-07-18 11:36] LABS: Albumin 3.2 g/dL (3.4-5.0); Alkaline Phosphatase 81 U/L (45-117); Bilirubin Direct 0.5 mg/dL (0-0.2); Glucose Level 208 mg/dL (74-106); Magnesium 1.2 mg/dL (1.8-2.4); NT PRO-BNP 793 pg/mL (<125); Troponin (Emerg Dept Use Only) < 0.02 ng/mL (0.0-0.045)
[2020-07-18 11:39] LABS: Potassium 2.6 mmol/L (3.5-5.1)
--- NOTE | 2020-07-18 11:59 | RAD REPORT ---
EXAM DESCRIPTION: RAD - Chest Single View - 07/18/2020 11:03 am CLINICAL HISTORY: COUGH COMPARISON: Portable October 2012 TECHNIQUE: AP portable chest image was obtained 07/18/2020 11:03 am . FINDINGS: Lungs are clear. Heart and vasculature are normal. No measurable pleural effusion and no p neumothorax. No acute bony abnormality seen. No acute aortic findings suspected. IMPRESSION: No acute cardiopulmonary process. No suspicious change from comparison.
[2020-07-18 12:12] LABS: Barbiturates NEGATIVE (NEGATIVE); Benzodiazepines NEGATIVE (NEGATIVE); Cocaine NEGATIVE (NEGATIVE); METHAMPHETAM NEGATIVE (NEGATIVE); Methadone NEGATIVE (NEGATIVE); Opiates NEGATIVE (NEGATIVE); Phencyclidine NEGATIVE (NEGATIVE); THC Cannibis NEGATIVE (NEGATIVE)
[2020-07-18 12:17] LABS: Blood Morphology Comment NOT SEEN (NOT SEEN); Platelet Estimate ADEQ
[2020-07-18] MEDS ORDERED: Magnesium Sulfate 2gm IVPB 2 G/50 ML BAG IV ONE (12:31)
[2020-07-18] MEDS ORDERED: KCL 20 MEQ/100 mL IVPB 20 MEQ/100 ML BAG IV ONE (12:31)
[2020-07-18] MEDS ORDERED: POTASSIUM 25 MEQ EFFERV TAB ONE (12:31)
[2020-07-18] MEDS ORDERED: CEFEPIME/SWI 2gm 2 GM/20 ML SYR IV ONE (13:00)
[2020-07-18 13:18] LABS: Urine Blood NEGATIVE (NEG); Urine Glucose TRACE (NEG); Urine Protein TRACE (NEG); Urine Specific Gravity 1.015 (1.005-1.030)
[2020-07-18] MEDS ORDERED: ONDANSETRON 4 MG/2 ML VIAL IV PRN (14:05)
[2020-07-18] MEDS: NA CHLORIDE 0.9% 1,000 ML IV SCH ×2 (14:05→22:05)
[2020-07-18] MEDS ORDERED: LORazepam 2 MG/ML VIAL IV PRN ×2 (14:05)
[2020-07-18] MEDS ORDERED: FLUMAZENIL 0.1 MG/ML (5 mL VIAL) IV PRN (14:05)
--- NOTE | 2020-07-18 14:09 | P.HP ---
Certification for Inpatient Patient admitted to: Observation With expected LOS: <2 Midnights Patient will require the following post-hospital care: None Practitioner: I am a practitioner with admitting privileges, knowledge of patient current condition, hospital course, and medical plan of care. Services: Services provided to patient in accordance with Admission requirements found in Title 42 Section 412.3 of the Code of Federal Regulations Patient History Date of Service: 07/18/20 Primary Care Provider: Dr. Real Reason for admission: Alcohol withdrawal symptoms History of Present Illness: 50-year-old male with history of diabetes, hypothyroidism. Patient presented to the emergency room with alcohol withdrawal symptoms. Patient reported stopping alcohol about 8 days ago. Patient reports prior to this time he was drinking heavily probably about 1/5 of vodka per day. This may be more. He reports no use of beer. Patient reports a history of alcohol abuse. He has had alcohol withdrawal symptoms in the past. He denies any fever, chills. Patient apparently going through a rough patch in his life. He is currently has 2 children.He came to the ER for further evaluation. In the ER patient was evaluated. Vital signs stable. Blood pressure is slightly elevated at 140 4/92. Heart rate 100. White count 7.1, hemoglobin 11. Platelet count 147. Slight elevation in liver function test. Sodium 135, potassium 2.6. Blood sugar 208. Magnesium level 1.2. Patient was given IV fluids in the emergency room. Thiamine was ordered. Patient admitted for further evaluation and treatment. The patient did report some falls at home. Upon further evaluation chest x-ray revealed left 9th rib fracture without pneumothorax. 2.5 cm area of right upper lobe suspected to be pulmonary contusion noted. No other acute trauma noted. Allergies No Known Allergies Allergy (Unverified 11/28/12 08:55) Home medications list reviewed: Yes - Past Medical/Surgical History Diabetic: Yes -: Diabetes mellitus type 2 [id number] -: Hypothyroidism -: Alcohol abuse -: History of alcohol withdrawal -: Increased social stress- -: Hernia repair Psychosocial/ Personal History: Patient currently . He has 2 children. He is trying to reconcile his divorce at this time. - Family History Family History: Reviewed- Non-Contributory - Social History Smoking Status: Light Tobacco smoker (1-9 cigarettes/day) Counseled patient to stop smoking for: less than 10 minutes Smoking therapy provided: Yes Patient receptive to therapy: Yes Alcohol use: Yes CD- Drugs: No Caffeine use: Yes Place of Residence: Home Review of Systems General: As per HPI Eyes: Unremarkable ENT: Unremarkable Respiratory: Unremarkable Cardiovascular: Unremarkable Gastrointestinal: Unremarkable Genitourinary: Unremarkable Musculoskeletal: As per HPI Integumentary: Unremarkable Neurological: As per HPI Lymphatics: Unremarkable Physical Examination - Physical Exam General: Alert, In no apparent distress, Oriented x3, Cooperative, Other (Patient with tremors.) HEENT: Atraumatic, Normocephalic Neck: Supple Respiratory: Clear to auscultation bilaterally, Normal air movement, Other (Pain to the left lateral region of the ribcage. Primarily to the 9th rib) Cardiovascular: Normal pulses, Regular rate/rhythm Gastrointestinal: Normal bowel sounds, Soft and benign, Non-distended, No tenderness, No masses, No rebound, No guarding Musculoskeletal: No tenderness, No warmth Integumentary: Other (Tremor noted to the lower extremity and upper extremity especially with extension.) Neurological: Normal speech, Normal strength at 5/5 x4 extr, Normal tone, Normal affect - Studies Laboratory Data (last 24 hrs) 07/18/20 10:35: PT 14.1 H, INR 1.20, APTT 26.6 07/18/20 10:35: WBC 7.1, Hgb 11.0 L, Hct 31.1 L, Plt Count 147 L 07/18/20 10:35: Sodium 135 L, Potassium 2.6 L*, BUN 9, Creatinine 0.85, Glucose 208 H, Magnesium 1.2 L*, Total Bilirubin 1.2 H, AST 83 H, ALT 32, Alkaline Phosphatase 81, Lipase 364 Assessment and Plan - Plan Impression: Tremors, lower extremity cramping secondary to alcohol withdrawal with alcohol abuse Hypokalemia, hypomagnesia secondary to above Left ribcage pain secondary to left 9th rib non displaced fracture without pneumothorax Possible pulmonary contusion to the right upper lobe Diabetes mellitus type 2 [id number] Hypothyroidism Plan: Tremors, lower extremity cramping secondary to alcohol withdrawal with alcohol abuse: Hypokalemia, hypomagnesia secondary to above: Patient will be admitted to ICU due to his alcohol withdrawal. Patient will be monitored closely. Will monitor for severe agitation and DTs. Will start Librium 25 mg 4 times a day. Will provide Ativan IV for agitation. Patient may require additional Ativan if with severe agitation. Continue IV fluid hydration. Continue with potassium and magnesium supplementation. Will provide DVT prophylaxis-Lovenox. Recheck chest x-ray tomorrow. No need for pulmonology evaluation at this time. We will have physical therapy assess ambulation tomorrow. Continue monitor electrolytes. Education on alcohol cessation addressed in detail. Patient plans to quit. Patient has been to AA in the past and remains committed. Anticipate improvement over the next 24-48 hr with possible discharge. pre will need to monitor him closely. Left ribcage pain secondary to left 9th rib non displaced fracture without pneumothorax: Continue monitor closely. May need to provide medication for pain. Recheck chest x-ray tomorrow. Will provide incentive spirometer. Possible pulmonary contusion to the right upper lobe: Recheck chest x-ray tomorrow. Will monitor this closely. Diabetes mellitus type 2 [id number]: Continue ADA diet. Will provide insulin sliding scale with Accu-Cheks. Hypothyroidism: Obtain and restart home medication. Discharge Plan: Home Plan to discharge in: 48 Hours - Advance Directives Does patient have a Living Will: No Does patient have a Durable POA for Healthcare: No - Code Status/Comfort Care Code Status Assessed: Yes (full code) Time Spent Managing Pts Care (In Minutes): 55
[2020-07-18] MEDS ORDERED: HYDROCODONE/APAP 7.5/325 MG TAB PO PRN (14:13)
[2020-07-18] MEDS ORDERED: TRAMADOL HCL 50 MG TAB PO PRN (14:13)
[2020-07-18] MEDS: ENOXAPARIN 40 MG/0.4 ML SQ SCH (16:00)
[2020-07-18] MEDS: INSULIN -REGULAR HUMAN 50 UNIT/0.5 ML ML SQ SCH ×2 (16:30→19:30)
[2020-07-18] MEDS ORDERED: NA CHLORIDE 0.9% 1,000 ML ONE (16:44)
[2020-07-18] MEDS ORDERED: ENOXAPARIN 40 MG/0.4 ML SQ ONE (16:44)
[2020-07-18] MEDS: chlordiazePOXIDE HCl 25 MG CAP PO SCH ×2 (18:00→23:21)
[2020-07-18] MEDS ORDERED: chlordiazePOXIDE HCl 25 MG CAP ONE (18:36)
[2020-07-18 19:26] VITALS: BMI 23.7
[2020-07-18] MEDS ORDERED: LORazepam 2 MG/ML VIAL IV ONE (20:24)
[2020-07-18] MEDS: LORazepam 2 MG/ML VIAL IV PRN ×3 (20:50→22:38)
[2020-07-18] MEDS: LORazepam 2 MG/ML VIAL IV SCH (21:00)
[2020-07-18 21:08] LABS: BUN Blood Urea Nitrogen 7 mg/dL (7-18); Bicarbonate 27 mmol/L (21-32); Glucose Level 144 mg/dL (74-106); Magnesium 1.7 mg/dL (1.8-2.4); Potassium 3.5 mmol/L (3.5-5.1); Sodium Level 142 mmol/L (136-145)
[2020-07-18] MEDS ORDERED: POTASSIUM CL SA 10 MEQ TAB PO ONE (22:37)
[2020-07-18] MEDS ORDERED: MAGNESIUM SULFATE 1 gm IVPB 1 GM/100 ML BAG IV ONE (22:38)
[2020-07-19] MEDS ORDERED: MAGNESIUM SULFATE 1 gm IVPB 1 GM/100 ML BAG IV ONE
[2020-07-19] MEDS: LORazepam 2 MG/ML VIAL IV SCH ×6 (00:11→21:21)
[2020-07-19] MEDS ORDERED: LORazepam 2 MG/ML VIAL ONE ×13 (00:20→21:35)
[2020-07-19] MEDS: LORazepam 2 MG/ML VIAL IV PRN ×10 (01:48→23:44)
[2020-07-19] MEDS: chlordiazePOXIDE HCl 25 MG CAP PO SCH ×4 (05:02→23:44)
[2020-07-19] MEDS: NA CHLORIDE 0.9% 1,000 ML IV SCH ×2 (05:03→18:38)
[2020-07-19 05:38] LABS: Absolute Lymphocytes (CBC) 2.4 K/uL (0.7-4.9); Basophils % 0.6 % (0-1.3); Hematocrit 34.1 % (39.6-49.0); Lymphocytes % 27.8 % (15.3-44.8); RBC Red Blood Cell Count 3.31 M/uL (4.33-5.43)
[2020-07-19 05:53] LABS: ALT/SGPT 37 U/L (12-78); AST/SGOT 72 U/L (15-37); Albumin 3.5 g/dL (3.4-5.0); Alkaline Phosphatase 83 U/L (45-117); BUN Blood Urea Nitrogen 4 mg/dL (7-18); Bicarbonate 31 mmol/L (21-32); Glucose Level 132 mg/dL (74-106); Magnesium 1.9 mg/dL (1.8-2.4); Potassium 3.1 mmol/L (3.5-5.1); Protein, Total 8.3 g/dL (6.4-8.2); Sodium Level 142 mmol/L (136-145)
[2020-07-19 07:03] LABS: Thyroid Stimulating Hormone 10.8 uIU/mL (0.360-3.740)
[2020-07-19] MEDS: INSULIN -REGULAR HUMAN 50 UNIT/0.5 ML ML SQ SCH ×4 (07:30→20:50)
[2020-07-19] MEDS ORDERED: KCL 20 MEQ/100 mL IVPB 20 MEQ/100 ML BAG IV SCH ×2 (08:00→10:00)
[2020-07-19 08:05] LABS: Blood Morphology Comment NOT SEEN (NOT SEEN); Platelet Estimate ADEQ; White Blood Cell Scan OK (OK)
--- NOTE | 2020-07-19 08:09 | RAD REPORT ---
EXAM DESCRIPTION: Julian Single View07/19/2020 7:41 am CLINICAL HISTORY: Chest pain COMPARISON: July 18 FINDINGS: The right upper lobe opacity has partially resolved. Main lungs appear clear. Heart is normal size IMPRESSION: Partial resolution in the right upper lobe opacity
[2020-07-19] MEDS: ENOXAPARIN 40 MG/0.4 ML SQ SCH (08:24)
[2020-07-19] MEDS ORDERED: ENOXAPARIN 40 MG/0.4 ML SQ ONE (08:26)
[2020-07-19] MEDS ORDERED: KCL 20 MEQ/100 mL IVPB 20 MEQ/100 ML BAG IV ONE ×2 (08:27→13:50)
[2020-07-19] MEDS: POTASSIUM 25 MEQ EFFERV TAB PO ONE ×2 (09:00→09:13)
[2020-07-19] MEDS ORDERED: POTASSIUM CL SA 10 MEQ TAB PO ONE ×2 (09:00)
[2020-07-19] MEDS: MULTIVITAMIN TAB PO SCH (09:13)
[2020-07-19] MEDS: FOLIC ACID 1 MG TABLET PO SCH (09:13)
[2020-07-19] MEDS ORDERED: MULTIVITAMIN TAB PO ONE (09:26)
[2020-07-19] MEDS ORDERED: FOLIC ACID 1 MG TABLET ONE (09:26)
[2020-07-19] MEDS ORDERED: POTASSIUM 25 MEQ EFFERV TAB ONE (09:26)
[2020-07-19] MEDS: THIAMINE HCL 100 MG TABLET PO SCH (09:41)
[2020-07-19] MEDS ORDERED: THIAMINE HCL 100 MG TABLET ONE (09:56)
--- NOTE | 2020-07-19 13:27 | RAD REPORT ---
EXAM DESCRIPTION: MRI - Brain Wo Cont - 07/19/2020 1:02 pm CLINICAL HISTORY: alcohol withdraw, evaluate for wernicke COMPARISON: No comparisons TECHNIQUE: Sagittal T1-weighted images were obtained along with axial PD, heavily T2-weighted and T2 -FLAIR images. Axial DWI and ADC mapping sequences were also obtained along with coronal heavily T2-w eighted images. No MR contrast was administered. Patient was unable to complete the examination due to an agitated st ate. Signed consent could not be obtained. FINDINGS: Exam has motion degradation limitations. No intracranial hemorrhage, mass or acute infarction. There is no edema or shift of midline structures. No extra-axial fluid collections. Cabrera-matter/white matte r junction is preserved. Signal voids are seen as a normal finding in the major intracranial vessels. Atrophy changes are present. Ventricles are in proportion to volume loss. Patient does not demonstrat e the thalamus, brainstem or periventricular signal abnormalities typically associated with a Wernick e encephalopathy. Mastoid air cells are clear. Right maxillary sinus opacification is present. IMPRESSION: Motion degraded study shows atrophy changes with no MR findings for Wernicke encephalopa thy. No acute infarction, mass or other acute intracranial finding.
--- NOTE | 2020-07-19 13:49 | P.PN ---
Subjective Date of Service: 07/19/20 Primary Care Provider: Dr. Real Chief Complaint: Alcohol withdrawal symptoms Subjective: Other (Patient requiring medication for sedation due to agitation.) Physical Examination - Vital Signs Temperature: 98.1 F Blood Pressure: 106/62 Pulse: 68 Respirations: 21 Pulse Ox (%): 99 - Physical Exam General: Other (Increase sedation noted. Still confused.) HEENT: Atraumatic Neck: Supple Respiratory: Clear to auscultation bilaterally Cardiovascular: Normal pulses, Regular rate/rhythm Gastrointestinal: Normal bowel sounds, No masses, No rebound, No guarding Neurological: Normal strength at 5/5 x4 extr, Normal tone - Studies Medications List Reviewed: Yes Assessment & Plan Discharge Plan: Home Plan to discharge in: Greater than 2 days Physician Review Additional Text: Impression: Tremors, lower extremity cramping secondary to alcohol withdrawal with alcohol abuse Hypokalemia, hypomagnesia secondary to above Left ribcage pain secondary to left 9th rib non displaced fracture without pneumothorax Possible pulmonary contusion to the right upper lobe Diabetes mellitus type 2 [id number] Hypothyroidism Plan: Tremors, lower extremity cramping secondary to alcohol withdrawal with alcohol abuse: Hypokalemia, hypomagnesia secondary to above: Patient remains in ICU. Continue with Librium. Patient required extra Ativan last night due to agitation. Continue to keep sedated. Will wean off sedation slowly. Vital signs stable. Case discussed with mother who was able to come. Mother reports patient is severely depressed. There is some question of bipolar disorder. Mother reports patient is . This has caused increased distress for the patient. Moth er reports patient is an alcoholic. Patient has had episode of suicidal ideation. This was not present when patient was evaluated yesterday and more alert. MRI shows no acute abnormality. Chest x-ray shows improvement. Continue to monitor closely. Continue thiamine, folic acid and IV fluids. Will need to evaluate for suicide ideation once the patient is able get back to baseline. Will need to consider psychiatric evaluation. Neurology consulted for further recommendation. Anticipate improvement over the next 48-72 hr.. Left ribcage pain secondary to left 9th rib non displaced fracture without pneumothorax: Continue monitor closely. May need to provide medication for pain. Chest x-ray shows stability. Will provide incentive spirometer. Possible pulmonary contusion to the right upper lobe: X-ray shows improvement. Will monitor this closely. Diabetes mellitus type 2 [id number]-cagiizxee: Continue ADA diet. Will provide insulin sliding scale with Accu-Cheks. Hypothyroidism: Obtain and restart home medication. Time Spent Managing Pts Care (In Minutes): 55
[2020-07-19] MEDS ORDERED: NA CHLORIDE 0.9% 1,000 ML ONE ×2 (16:09→21:35)
[2020-07-19] MEDS: KCL 20 MEQ/100 mL IVPB 20 MEQ/100 ML BAG IV SCH ×2 (17:12→20:43)
--- NOTE | 2020-07-19 17:17 | EKG ---
Test Date: 2020-07-18 Test Time: 11:08:20 Classifier Operator: KATHIE MEASUREMENT RESULTS: Intervals: Rate: 77 MA: 166 QRSD: 88 QT: 448 QTc: 506 [place]: P: 49 MA: 166 QRS: 58 T: 16 INTERPRETIVE STATEMENTS: Normal sinus rhythm Prolonged QT Abnormal ECG Compared to ECG 02/22/2020 10:56:33 Prolonged QT interval now present Electronically Signed On 07-19-20 17:13:16 BILLING SUPERVISOR by Adan Bishop
[2020-07-19] MEDS ORDERED: KCL 20 MEQ/100 mL IVPB 40 MEQ/200 ML BAG IV ONE (17:18)
[2020-07-19] MEDS ORDERED: chlordiazePOXIDE HCl 25 MG CAP ONE (23:49)
[2020-07-20] MEDS ORDERED: LORazepam 2 MG/ML VIAL IV ONE (00:29)
[2020-07-20] MEDS: NA CHLORIDE 0.9% 1,000 ML IV SCH ×2 (02:56→07:45)
[2020-07-20] MEDS: LORazepam 2 MG/ML VIAL IV SCH ×4 (03:06→12:25)
[2020-07-20] MEDS ORDERED: LORazepam 2 MG/ML VIAL ONE ×2 (03:21→05:55)
[2020-07-20 04:26] LABS: Absolute Lymphocytes (CBC) 1.9 K/uL (0.7-4.9); Basophils % 0.7 % (0-1.3); Hematocrit 29.1 % (39.6-49.0); Lymphocytes % 27.6 % (15.3-44.8); MPV 8.2 fL (7.6-11.3); RBC Red Blood Cell Count 2.75 M/uL (4.33-5.43)
[2020-07-20 04:44] LABS: ALT/SGPT 38 U/L (12-78); AST/SGOT 74 U/L (15-37); Albumin 2.9 g/dL (3.4-5.0); Alkaline Phosphatase 67 U/L (45-117); BUN Blood Urea Nitrogen 7 mg/dL (7-18); Bicarbonate 25 mmol/L (21-32); Glucose Level 89 mg/dL (74-106); Magnesium 1.6 mg/dL (1.8-2.4); Potassium 3.4 mmol/L (3.5-5.1); Protein, Total 6.7 g/dL (6.4-8.2); Sodium Level 143 mmol/L (136-145)
[2020-07-20] MEDS: LORazepam 2 MG/ML VIAL IV PRN (05:41)
[2020-07-20] MEDS: chlordiazePOXIDE HCl 25 MG CAP PO SCH ×2 (05:50→11:33)
[2020-07-20] MEDS ORDERED: LEVOTHYROXINE SODIUM 100 MCG VIAL IV SCH (06:00)
[2020-07-20] MEDS ORDERED: chlordiazePOXIDE HCl 25 MG CAP ONE ×2 (06:04→07:56)
[2020-07-20] MEDS: KCL 20 MEQ/100 mL IVPB 20 MEQ/100 ML BAG IV SCH ×2 (06:07→07:54)
[2020-07-20 06:15] VITALS: O2SAT 100
[2020-07-20] MEDS ORDERED: KCL 20 MEQ/100 mL IVPB 40 MEQ/200 ML BAG IV ONE (06:21)
[2020-07-20] MEDS: INSULIN -REGULAR HUMAN 50 UNIT/0.5 ML ML SQ SCH ×2 (07:30→11:30)
[2020-07-20 07:35] VITALS: TEMP 98.1
[2020-07-20] MEDS: FOLIC ACID 1 MG TABLET PO SCH (07:44)
[2020-07-20] MEDS: MULTIVITAMIN TAB PO SCH (07:44)
[2020-07-20] MEDS: ENOXAPARIN 40 MG/0.4 ML SQ SCH (07:45)
[2020-07-20] MEDS: THIAMINE HCL 100 MG TABLET PO SCH (07:45)
[2020-07-20] MEDS ORDERED: MULTIVITAMIN TAB PO ONE (07:56)
[2020-07-20] MEDS ORDERED: THIAMINE HCL 100 MG TABLET ONE (07:56)
[2020-07-20] MEDS ORDERED: FOLIC ACID 1 MG TABLET ONE (07:57)
[2020-07-20] MEDS ORDERED: NA CHLORIDE 0.9% 1,000 ML ONE (07:57)
[2020-07-20] MEDS ORDERED: ENOXAPARIN 40 MG/0.4 ML SQ ONE (07:57)
[2020-07-20] MEDS ORDERED: MAGNESIUM SULFATE 1 gm IVPB 1 GM/100 ML BAG IV ONE (08:00)
--- NOTE | 2020-07-20 13:29 | P.PN ---
Subjective Date of Service: 07/20/20 Primary Care Provider: Dr. Real Chief Complaint: Alcohol withdrawal symptoms Subjective: Other (Patient has significantly improved. Patient appears to be back to his baseline mentation. Patient not suicidal. Mother at bedside. Matteo byers has not required any IV sedation since this morning.) Physical Examination - Vital Signs Temperature: 98.1 F Blood Pressure: 152/89 Pulse: 75 Respirations: 20 Pulse Ox (%): 100 - Physical Exam General: Alert, In no apparent distress, Oriented x3 HEENT: Atraumatic Neck: Supple Respiratory: Clear to auscultation bilaterally, Normal air movement Cardiovascular: Normal pulses, Regular rate/rhythm Gastrointestinal: Normal bowel sounds, Soft and benign, Non-distended, No tenderness, No masses, No rebound, No guarding Neurological: Normal speech, Normal strength at 5/5 x4 extr, Normal tone, Normal affect - Studies Medications List Reviewed: Yes Assessment & Plan Discharge Plan: Home Plan to discharge in: 24 Hours Physician Review Additional Text: Impression: Tremors, lower extremity cramping secondary to moderate alcohol withdrawal with alcohol abuse, alcoholic hallucinosis, agitation Hypokalemia, hypomagnesia secondary to above Left ribcage pain secondary to left 9th rib non displaced fracture without pneumothorax Possible pulmonary contusion to the right upper lobe Diabetes mellitus type 2 uid-euhlzzl-fwlzngdiv Hypothyroidism Depression Plan: Tremors, lower extremity cramping secondary to moderate alcohol withdrawal with alcohol abuse, alcoholic hallucinosis, agitation: Back to his normal baseline. Will limit IV Ativan. Continue Librium. Will try to wean off Librium. Patient desires to go home peer will have physical therapy assess ambulation. Discontinue IV fluids. Encourage oral intake. Patient is not suicidal. Patient understands in detail about his alcohol abuse. Rehab is not option as this will be too expensive. Likely scenario is the patient going home with the mother. Mother has express that when he does drink he becomes a different person. This was addressed in detail with mother and daughter. Patient understands that if he continues to drink alcohol, that this may end up with a poor outcome. Patient plans to quit. Patient has been compliant in the past with AA. Patient plans to continue AA at discharge. Will need to get a hold of his PCP to discuss plan of care. If the patient is to be discharge within the next 24 hr. Continue thiamine, folic acid. Continue thyroid medication. MRI negative. Chest x-ray shows improvement. No significant pain noted. Case discussed in detail with Neurology who his to see the patient. Await his recommendation. Possible discharge as early as today or tomorrow. Left ribcage pain secondary to left 9th rib non displaced fracture without pneumothorax: Continue monitor closely. Will limit pain medication. Chest x-r ay shows stability. Will provide incentive spirometer. Possible pulmonary contusion to the right upper lobe: X-ray shows improvement. Will monitor this closely. Diabetes mellitus type 2 [id number]-[id number]: Continue ADA diet. Will provide insulin sliding scale with Accu-Cheks. Hypothyroidism: Home medication levothyroxine 88 mcg started. Depression: Will recommend patient to see psychiatry as an outpatient to further evaluate and treat. Time Spent Managing Pts Care (In Minutes): 55
[2020-07-20 14:12] LABS: Ferritin 938.8 ng/mL (26-388)
[2020-07-20 15:04] VITALS: BP 139/82
--- NOTE | 2020-07-20 15:17 | P.DS ---
Admission Date: 07/18/20 Discharge Date: 07/20/20 Primary Care Provider: Dr. Real Disposition: ROUTINE DISCHARGE Discharge Condition: GOOD Reason for Admission: Alcohol withdrawal symptoms Consultations: Neurology-Dr. Perry Procedures: COVID: Negative CT scan: FINDINGS: No intracranial hemorrhage, mass or edema. No midline shift or abnormal fluid collection. Volume loss changes are present greater than typically seen. Ventricles are in proportion to the volume loss. Mastoid air cells are clear. Near complete opacification of a partially imaged right maxillary sinus noted. No skull fracture. CT cervical spine imaging shows normal height. Facet joint degenerative changes are present. Normal alignment of the vertebrae. No disc space narrowing. No paraspinal mass or hematoma seen. Central canal detail is inherently limited. Concerns for traumatic disc herniation or traumatic cord injury can be further addressed with MR imaging. In the posterior right upper lobe there is a 2.5 centimeter area of ill-defined airspace opacification. In the trauma setting this is most likely pulmonary contusion. Infiltrate is a lesser consideration. This does not have a suspicious malignant mass density. Minimal less than 5 millimeter reticulonodular opacities are present in the midportion of the left lower lobe. This could be minimal infiltrate. Traumatic etiology is not suspected. No pneumothorax or pleural effusion. No mediastinal hematoma and the aorta and pulmonary arteries are unremarkable. No chest will mass or abnormal axillary finding. Nondisplaced lateral ninth left rib fracture is present. CT abdomen and pelvis show no injury to solid abdominal viscera. Diffuse fatty infiltration of the liver is present. No gallbladder or biliary tree abnormality. No bowel injury or significant finding. No free air, free fluid or abnormal stranding. No urinary bladder abnormality. No lumbar or pelvic acute finding. No significant vascular finding. IMPRESSION: No acute CT Head finding. Volume loss changes are present greater than typically seen for age. No significant CT Cervical Spine finding. Nondisplaced lateral left ninth rib fracture without pneumothorax or pleural fluid. There is a 2.5 centimeter area in the right upper lobe suspected to be pulmonary contusion. Small reticulonodular opacities in the left lower lobe are nonspecific but could be minimal infiltrate. No acute traumatic injury to the abdomen or pelvis. MRI Brain: FINDINGS: Exam has motion degradation limitations. No intracranial hemorrhage, mass or acute infarction. There is no edema or shift of midline structures. No extra- axial fluid collections. Cabrera-matter/white matter junction is preserved. Signal voids are seen as a normal finding in the major intracranial vessels. Atrophy changes are present. Ventricles are in proportion to volume loss. Patient does not demonstrate the thalamus, brainstem or periventricular signal abnormalities typically associated with a Wernicke encephalopathy. Mastoid air cells are clear. Right maxillary sinus opacification is present. IMPRESSION: Motion degraded study shows atrophy changes with no MR findings for Wernicke encephalopathy. No acute infarction, mass or other acute intracranial finding. CXR: COMPARISON: July 18 FINDINGS: The right upper lobe opacity has partially resolved. Main lungs appear clear. Heart is normal size IMPRESSION: Partial resolution in the right upper lobe opacity Medical problem list: Tremors, lower extremity cramping secondary to moderate alcohol withdrawal with alcohol abuse, alcoholic hallucinosis, agitation Hypokalemia, hypomagnesia secondary to above Left ribcage pain secondary to left 9th rib non displaced fracture without pneumothorax Possible pulmonary contusion to the right upper lobe Diabetes mellitus type 2 [id number] Hypothyroidism Depression Fatty liver Anemia of chronic disease Brief History of Present Illness: 50-year-old male with history of diabetes, hypothyroidism. Patient presented to the emergency room with alcohol withdrawal symptoms. Patient reported stopping alcohol about 8 days ago. Patient reports prior to this time he was drinking heavily probably about 1/5 of vodka per day. This may be more. He reports no use of beer. Patient reports a history of alcohol abuse. He has had alcohol withdrawal symptoms in the past. He denies any fever, chills. Patient apparently going through a rough patch in his life. He is currently has 2 children.He came to the ER for further evaluation. In the ER patient was evaluated. Vital signs stable. Blood pressure is slightly elevated at 140 4/92. Heart rate 100. White count 7.1, hemoglobin 11. Platelet count 147. Slight elevation in liver function test. Sodium 135, potassium 2.6. Blood sugar 208. Magnesium level 1.2. Patient was given IV fluids in the emergency room. Thiamine was ordered. Patient admitted for further evaluation and treatment. The patient did report some falls at home. Upon further evaluation chest x-ray revealed left 9th rib fracture without pneumothorax. 2.5 cm area of right upper lobe suspected to be pulmonary contusion noted. No other acute trauma noted. Hospital Course: Patient presented with tremors, lower extremity cramping secondary to moderate alcohol withdrawal with alcohol abuse, alcoholic hallucinosis, and agitation. Patient admitted heavy alcohol use. He has been going through difficult time in his life. He stop drinking about 8 days ago. Since that time he has been having increased falls, tremors, and agitation. During the course of his hospitalization patient required IV benzodiazepine. Alcohol level was unremarkable upon admission. Patient had electrolyte abnormalities including hypokalemia and hypomagnesia. This was replaced with electrolyte protocol. The patient required telemetry monitoring. The patient was eventually weaned off IV benzodiazepine. Patient was transition to oral benzodiazepine-Librium. The patient has done well. Patient worked with physical therapy. Fall precautions in place. Further workup included unremarkable MRI brain. CT scan showed a left 9th rib non displaced fracture without pneumothorax, pulmonary contusion to the right upper lobe, and fatty liver. Chest x-ray showed improvement in right upper lobe contusion. Patient was evaluated by Neurology. Neurology recommended to wean off benzodiazepine and continue with supplementation. No further neurology evaluation was required. No evidence of severe delirium tremens noted as patient was afebrile, blood pressure stable, and no respiratory distress noted. Patient was counseled extensively on alcohol cessation. Patient understands the importance of quitting alcohol. Patient plans to quit. Patient not able to go to rehab at this time due to cost. Patient will go home with his mother. Patient plans to go to and to remain sober. No suicidal ideation noted at this time. Will recommend outpatient psychiatric evaluation as an outpatient for further evaluation and treatment. At discharge patient will continue with thiamine 100 mg daily and folic acid 1 mg daily. The patient will continue with Librium taper: Librium 25 mg 1 pill 3 times a day for 3 days then 1 pill twice daily for 3 days, then 1 pill once daily for 3 days then as needed for agitation. Patient is not to drive while using medication. Patient is not to drink while on medication as well. This was stressed in detail with the patient and mother. I will contact his PCP so that the patient follows up closely and further address is his current condition. Patient with diabetes mellitus type 2 [id number]. At discharge patient may continue with metformin. Further adjustment in medication can be done by his PCP. Patient with hypothyroidism. Compliance of medication recommended. Patient will continue with levothyroxine 88 mcg daily. Recommend to recheck tsh and free T4 in 4-6 weeks. Further adjustment can be done by his PCP. Patient with fatty liver. Recommend GI evaluation as an outpatient to address this further. Education provided. Patient with underlying depression. Recommend outpatient psychiatric evaluation to further address his condition. Patient with anemia of chronic disease likely related to his alcohol use. Patient may continue with multi vitamin daily. Recommend to recheck lab-CBC in 1 week. This can be done with the help of his PCP. Vital Signs/Physical Exam: Temp Pulse Resp BP Pulse Ox 98.1 F 71 13 139/82 99 07/20/20 13:29 07/20/20 15:00 07/20/20 15:00 07/20/20 15:00 07/20/20 15:00 General: Alert, In no apparent distress, Oriented x3, Cooperative HEENT: Atraumatic Neck: Supple Respiratory: Clear to auscultation bilaterally, Normal air movement Cardiovascular: Normal pulses, Regular rate/rhythm Gastrointestinal: Normal bowel sounds, Soft and benign, Non-distended, No tenderness, No masses, No rebound, No guarding Integumentary: No tenderness/swelling, No erythema, No warmth, No cyanosis Neurological: Normal speech, Normal strength at 5/5 x4 extr, Normal tone, Normal affect Laboratory Data at Discharge: WBC 6.8 K/uL (4.3-10.9) D 07/20/20 04:15 Hgb 9.8 g/dL (13.6-17.9) L 07/20/20 04:15 Hct 29.1 % (39.6-49.0) L 07/20/20 04:15 Plt Count 201 K/uL (152-406) 07/20/20 04:15 PT 14.1 SECONDS (9.5-12.5) H 07/18/20 10:35 INR 1.20 07/18/20 10:35 APTT 26.6 SECONDS (24.3-36.9) 07/18/20 10:35 Sodium 143 mmol/L (136-145) 07/20/20 04:15 Potassium Cancelled 07/20/20 04:30 BUN 7 mg/dL (7-18) 07/20/20 04:15 Creatinine 0.46 mg/dL (0.55-1.3) L 07/20/20 04:15 Glucose 89 mg/dL (74-106) 07/20/20 04:15 Phosphorus 2.5 mg/dL (2.5-4.9) 07/18/20 12:22 Magnesium 1.6 mg/dL (1.8-2.4) L 07/20/20 04:15 Total Bilirubin 1.0 mg/dL (0.2-1.0) 07/20/20 04:15 AST 74 U/L (15-37) H 07/20/20 04:15 ALT 38 U/L (12-78) 07/20/20 04:15 Alkaline Phosphatase 67 U/L (45-117) 07/20/20 04:15 Lipase 364 U/L (73-393) 07/18/20 10:35 Home Medications: Folic Acid 1 mg PO DAILY #90 tablet 07/20/20 Levothyroxine [Synthroid*] 1 tab PO DAILY 07/20/20 Metformin HCl [Metformin HCl ER] 1 tab PO DAILY 07/20/20 Multivit,Ther Iron,Ca,FA & Min [Centrum Tablet*] 1 tab PO DAILY #90 tab 07/20/20 Thiamine HCl [Vitamin B-1*] 100 mg PO DAILY #90 tablet 07/20/20 chlordiazePOXIDE HCl [Librium*] 25 mg PO SEECOM #18 cap 07/20/20 New Medications: Multivit,Ther Iron,Ca,FA & Min [Centrum Tablet*] 1 tab PO DAILY #90 tab Folic Acid 1 mg PO DAILY #90 tablet chlordiazePOXIDE HCl [Librium*] 25 mg PO SEECOM #18 cap Thiamine HCl [Vitamin B-1*] 100 mg PO DAILY #90 tablet Patient Discharge Instructions: Follow up with PCP in 1-2 days to follow up this hospitalization. Patient presented with tremors, lower extremity cramping secondary to moderate alcohol withdrawal with alcohol abuse, alcoholic hallucinosis, and agitation. Patient admitted heavy alcohol use. He has been going through difficult time in his life. He stop drinking about 8 days ago. Since that time he has been having increased falls, tremors, and agitation. During the course of his hospitalization patient required IV benzodiazepine. Alcohol level was unremarkable upon admission. Patient had electrolyte abnormalities including hypokalemia and hypomagnesia. This was replaced with electrolyte protocol. The patient required telemetry monitoring. The patient was eventually weaned off IV benzodiazepine. Patient was transition to oral benzodiazepine-Librium. The patient has done well. Patient worked with physical therapy. Fall precautions in place. Further workup included unremarkable MRI brain. CT scan showed a left 9th rib non displaced fracture w ithout pneumothorax, pulmonary contusion to the right upper lobe, and fatty liver. Chest x-ray showed improvement in right upper lobe contusion. Patient was evaluated by Neurology. Neurology recommended to wean off benzodiazepine and continue with supplementation. No further neurology evaluation was required. No evidence of severe delirium tremens noted as patient was afebrile, blood pressure stable, and no respiratory distress noted. Patient was counseled extensively on alcohol cessation. Patient understands the importance of quitting alcohol. Patient plans to quit. Patient not able to go to rehab at this time due to cost. Patient will go home with his mother. Patient plans to go to and to remain sober. No suicidal ideation noted at this time. Will recommend outpatient psychiatric evaluation as an outpatient for further evaluation and treatment. At discharge patient will continue with thiamine 100 mg daily and folic acid 1 mg daily. The patient will continue with Librium taper: Librium 25 mg 1 pill 3 times a day for 3 days then 1 pill twice daily for 3 days, then 1 pill once daily for 3 days then as needed for agitation. Patient is not to drive while using medication. Patient is not to drink while on medication as well. This was stressed in detail with the patient and mother. I will contact his PCP so that the patient follows up closely and further address is his current condition. Patient with diabetes mellitus type 2 [id number]. At discharge patient may continue with metformin. Further adjustment in medication can be done by his PCP. Patient with hypothyroidism. Compliance of medication recommended. Patient will continue with levothyroxine 88 mcg daily. Recommend to recheck tsh and free T4 in 4-6 weeks. Further adjustment can be done by his PCP. Patient with fatty liver. Recommend GI evaluation as an outpatient to address this further. Education provided. Patient with underlying depression. Recommend outpatient psychiatric evaluation to further address his condition. Patient with anemia of chronic disease likely related to his alcohol use. Patient may continue with multi vitamin daily. Recommend to recheck lab-CBC in 1 week. This can be done with the help of his PCP. Diet: ADA Activity: Fall precautions Followup: Unknown,U [Primary Care Provider] - Time spent managing pt's care (in minutes): 55
--- NOTE | 2020-07-20 19:48 | CON ---
Reason For Consultation: Consultation was called by Dr. Hardy because of alcohol withdrawal type sy mptoms. History Of Present Illness: Mr. Nicole is a 50-year-old right-handed patient with diabetes mellitus, hypertension, and long-standing alcohol use. The patient admits to drinking alcohol since age 14 and may drink up to 5th a day; however, there were times when he would stop drinking. The pa modesta reports at least lifetime for himself perhaps 11 seizures. His mother, who was in the room, sa id she has witnessed 3 seizures and he has had multiple stents and admissions to the facilities for d etoxification and then would come back to alcohol abuse again. He has current admission, is not david r that he actually had any tachycardia, fever, or withdrawal symptoms or delirium tremens symptoms. At the time of his evaluation in the emergency room, blood pressure in the 140/90s and heart rate soumya und 100. He was not noted to be febrile. The patient was treated with thiamine, folic acid, multivi tamin, hydration. His head CT scan and subsequent brain MRI did not show any ischemic or hemorrhagic changes. No findings consistent with Wernicke's in terms of mamillary body loss or any significant atrophy of the brain. At the time of my evaluation, the patient is actually sitting on the side of h is bed, his mother was in a chair, and he was ready to go home. He had gotten up and walked with [employer] therapy at least 150 feet without any assistance being required. Past Medical History: As indicated. Family History: Noncontributory. Social History: As indicated, drinks alcohol very heavily on a daily basis. Smokes 1-9 cigarettes d aily. The patient has a daughter and his grandchild on the way and his daughter is about to be marri ed. Review of Systems: As indicated, except that no recent fevers, chills, nausea, vomiting, myalgias, arthralgias, rash, he adache, weight change, or psychiatric issues. Medications: While at the hospital, he was on Librium 25 mg daily currently and also had [place] for p ain and Lovenox for DVT prophylaxis in addition to folic acid 1 mg daily, thiamine 1 mg daily, Synthr oid 50 mcg daily, and he received Zofran, multivitamin. Physical Examination: Vital Signs: Blood pressure 139/82, pulse 71, respiratory rate 16 to 18, temperature 98.1. Oxygen s aturation 99%. Weight 169 pounds, height 5 feet 11 inches, and BMI 23.6. GENERAL: Mr. Nicole is resting in his bed, in no acute distress. HEENT: He is normocephalic, atraumatic. Sclerae anicteric. Oropharynx is moist and pink. Neck: Supple. Chest: Clear. Heart: Regular. Extremities: Show no edema, cyanosis, or clubbing. Neurologic: He has no focal cranial nerve, motor, sensory, coordination or gait deficits despite his long history of alcohol use. Laboratory Studies: Complete blood count with differential shows slightly low hemoglobin at 9.8, whi te blood cell count normal at 6.8, platelets normal at 201. INR 1.2. Chemistries show slightly low potassium of 3.4, chloride 112. Iron, TIBC, transferrin low and his ferritin is elevated. AST 74, A LT 38, and alkaline phosphatase 67. B12 level is slightly low at 490. Urinalysis negative. Toxicol ogy showed his plasma alcohol level at 18, is less than 10. COVID-19 negative. Assessment: Mr. Nicole is 50-year-old patient with a long-standing history of heavy alcohol abuse an d dependency. He has had withdrawals and reportedly a total of 8 seizures. The patient has not had a seizure witnessed during this hospitalization. He has comorbid conditions as mentioned. Plan: 1.He should be admitted to an alcohol treatment or withdrawal program. 2.He will be given a Librium taper to go home. 3.The patient should continue thiamine 100 mg, folate 1 mg, and multivitamin daily. 4.He may follow up with Dr. Perry in clinic in 2 weeks after discharge. KEYANNA/IBAN Voice ID: [id number] Report ID: [id number]
[2020-07-20] MEDS ORDERED: LORazepam 2 MG/ML VIAL IV SCH (21:00)
[2020-07-21] MEDS ORDERED: LEVOTHYROXINE SOD 0.088 MG TAB PO SCH (06:30)
== END 2020-07-20 16:33 | disposition home or self-care (01) | DRG 897 ==
LOC: ER 09:38 → ERHOLD 12:09
PROVIDERS: ADMIT Family Medicine; ATTEND Family Medicine
DX: F10.139 Alcohol abuse with withdrawal, unspecified (principal); S22.32XA Fracture of one rib, left side, initial encounter for closed fracture; F10.151 Alcohol abuse with alcohol-induced psychotic disorder with hallucinations; E78.5 Hyperlipidemia, unspecified; E11.9 Type 2 diabetes mellitus without complications; E03.9 Hypothyroidism, unspecified; E87.6 Hypokalemia; E83.42 Hypomagnesemia; F32.9 Major depressive disorder, single episode, unspecified; K76.0 Fatty (change of) liver, not elsewhere classified; D63.8 Anemia in other chronic diseases classified elsewhere; F17.220 Nicotine dependence, chewing tobacco, uncomplicated; Z79.890 Hormone replacement therapy; Z79.84 Long term (current) use of oral hypoglycemic drugs; Z79.899 Other long term (current) drug therapy; Z20.822 Contact with and (suspected) exposure to COVID-19
CPT/HCPCS: 36415; 70450; 70551; 71045; 71260; 72125; 74177; 80048; 80053; 80076; 80307; 80320; 80329; 81003; 82565; 82607; 82728; 82947; 83540; 83605; 83690; 83735; 83880; 84100; 84132; 84439; 84443; 84466; 84484; 85025; 85610; 85730; 87040; 93005; 94010; 96365; 96367; 96368; 96375; 97161; 99285; J0692; J1650; J3411; J3475; J3480; J7030; Q9967; U0003